=== PATIENT | female | born 1985 | race Caucasian/White ===

== ENCOUNTER → 2017-04-28 | Outpatient (CLI) | payer OTHER | LOC: BRMIMAGING 15:36 | PROVIDERS: ATTEND Family Medicine | DX: M79.662 Pain in left lower leg (principal); R93.6 Abnormal findings on diagnostic imaging of limbs | CPT/HCPCS: 93971-PO ==

== ENCOUNTER → 2018-08-15 | Outpatient (CLI) | payer OTHER | LOC: BRMIMAGING 10:54 | PROVIDERS: ATTEND Family Medicine | DX: R09.89 Other specified symptoms and signs involving the circulatory and respiratory systems (principal) ==